=== PATIENT | female | born 1955 | race Caucasian/White ===

== ENCOUNTER 2018-02-04 14:06 | Emergency (ER) | payer SELFPAY ==
[~2018-02-04] VITALS: Ht 157.5 cm; Wt 63.2 kg
[2018-02-04 14:18] VITALS: BP 138/63
[2018-02-04] MEDS ORDERED: AMOX875T PO (14:44)
--- NOTE | 2018-02-04 14:45 | PHYS DOC ---
Past Medical History Past Medical History: Diabetes-Type II Past Surgical History: Cholecystectomy, Hysterectomy, Oophorectomy Alcohol Use: Rarely Drug Use: None Adult General Chief Complaint Chief Complaint: Congestion HPI HPI Patient is a 62 year old female who presents with a sore throat and sinus drainage. 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 The person that exposed her is now taking antibiotics. 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 She was sent by her employer to the emergency department for evaluation when they found out that she was becoming symptomatic. Review of Systems Review of Systems Constitutional: Denies fever or chills [] Eyes: Denies change in visual acuity, redness, or eye pain [] HENT: See history of present illness Respiratory: Denies cough or shortness of breath [] Cardiovascular: No additional information not addressed in HPI [] GI: Denies abdominal pain, nausea, vomiting, bloody stools or diarrhea [] : Denies dysuria or hematuria [] Musculoskeletal: Denies back pain or joint pain [] Integument: Denies rash or skin lesions [] Neurologic: Denies headache, focal weakness or sensory changes [] Endocrine: Denies polyuria or polydipsia [] All other systems were reviewed and found to be within normal limits, except as documented in this note. Allergies Allergies Allergies Coded Allergies Type Severity Reaction Last Updated Verified erythromycin base Allergy Intermediate 02/04/18 Yes insulin glargine Allergy Intermediate Hives 02/04/18 Yes prednisone Allergy Intermediate 02/04/18 Yes Physical Exam Physical Exam Constitutional: Well developed, well nourished, no acute distress, non-toxic appearance. [] HENT: Normocephalic, atraumatic, bilateral external ears normal, pharyngeal erythema with no oral exudates, nose normal. [] Eyes: PERRLA, EOMI, conjunctiva normal, no discharge. [] Neck: Normal range of motion, anterior cervical tenderness, supple, no stridor. [] Cardiovascular:Heart rate regular rhythm, no murmur [] Lungs & Thorax: Bilateral breath sounds clear to auscultation [] Skin: Warm, dry, no erythema, no rash. [] Neurologic: Alert and oriented X 3, normal motor function, normal sensory function, no focal deficits noted. [] Psychologic: Affect normal, judgement normal, mood normal. [] Current Patient Data Vital Signs Vital Signs Date Time Temp Pulse Resp B/P (MAP) Pulse Ox O2 Delivery O2 Flow Rate FiO2 02/04/18 14:18 98.7 86 18 138/63 (88) 97 Room Air 98.7 EKG EKG [] Radiology/Procedures Radiology/Procedures [] Course & Med Decision Making Course & Med Decision Making Pertinent Labs and Imaging studies reviewed. (See chart for details) [] Dragon Disclaimer Dragon Disclaimer This electronic medical record was generated, in whole or in part, using a voice recognition dictation system. Departure Departure Impression: Primary Impression: Upper respiratory infection Additional Impression: Pharyngitis Disposition: HOME, SELF-CARE Condition: STABLE Referrals: UNKNOWN PCP NAME (PCP) Patient Instructions: Upper Respiratory Infection, Adult, Viral and Bacterial Pharyngitis Additional Instructions: Take the medication as directed. Follow-up with your primary care provider in 3 days if not improving or return to the emergency department if worsening. Continue to take your [id number] allergy medication. Scripts Amoxicillin (AMOXICILLIN) 875 Mg Tablet 1 TAB PO BID, #20 TAB Prov: AMANDO BURDICK APRN 02/04/18 Problem Qualifiers AMANDO BURDICK APRN Feb 04, 2018 14:45
== END 2018-02-04 15:05 | disposition home or self-care (01) ==
LOC: ER 14:06
DX: J06.9 Acute upper respiratory infection, unspecified (principal); E11.9 Type 2 diabetes mellitus without complications; Z90.49 Acquired absence of other specified parts of digestive tract; Z90.710 Acquired absence of both cervix and uterus; Z88.1 Allergy status to other antibiotic agents; Z88.8 Allergy status to other drugs, medicaments and biological substances
CPT/HCPCS: 87070; 87880; 99284

== ENCOUNTER 2018-10-11 09:34 | Emergency (ER) | payer SELFPAY ==
[~2018-10-11] VITALS: Ht 157.5 cm; Wt 61.2 kg
[~2018-10-11 09:34] MED LIST: AMOX875T PO
[2018-10-11 09:47] VITALS: BP 174/76
--- NOTE | 2018-10-11 10:44 | RAD ---
EXAM: Right ankle, 3 views. HISTORY: Trauma. COMPARISON: None. FINDINGS: 3 views of the right ankle are obtained. There is no fracture, dislocation or subluxation. There is a small plantar spur. There is suspected bone demineralization. IMPRESSION: No acute osseous finding. Electronically signed by: Ngozi Schilling MD (10/11/2018 10:41 AM) [facility]
[2018-10-11] MEDS ORDERED: HYDR-3164 PO (11:14)
--- NOTE | 2018-10-11 11:14 | PHYS DOC ---
Past Medical History Past Medical History: Diabetes-Type II, Hypertension Past Surgical History: Cholecystectomy, Hysterectomy, Oophorectomy Alcohol Use: Rarely Drug Use: None Adult General Chief Complaint Chief Complaint: FOOT INJURY PAIN [facility] HPI Patient is a 63 year old female who presents with complaining of right ankle and foot pain. Patient states she twisted her right ankle on September 29 2018 and since then has had pain that does not getting better with using one crutches. Patient denies other injuries and focal neurodeficit. She rated her pain for without bearing weight and 7 with bearing weight. Review of Systems Review of Systems Constitutional: Denies fever or chills [] Eyes: Denies change in visual acuity, redness, or eye pain [] HENT: Denies nasal congestion or sore throat [] Respiratory: Denies cough or shortness of breath [] Cardiovascular: No additional information not addressed in HPI [] GI: Denies abdominal pain, nausea, vomiting, bloody stools or diarrhea [] : Denies dysuria or hematuria [] Musculoskeletal: Denies back pain, reports joint pain [] Integument: Denies rash or skin lesions [] Neurologic: Denies headache, focal weakness or sensory changes [] Endocrine: Denies polyuria or polydipsia [] All other systems were reviewed and found to be within normal limits, except as documented in this note. Allergies Allergies Allergies Coded Allergies Type Severity Reaction Last Updated Verified erythromycin base Allergy Intermediate 02/04/18 Yes insulin glargine Allergy Intermediate Hives 02/04/18 Yes prednisone Allergy Intermediate 02/04/18 Yes Physical Exam Physical Exam Constitutional: Well developed, well nourished, mild distress, non-toxic appearance. [] HENT: Normocephalic, atraumatic. Eyes: PERRLA, EOMI, conjunctiva normal, no discharge. [] Neck: Normal range of motion, no tenderness, supple, no stridor. [] Cardiovascular:Heart rate regular rhythm, no murmur [] Lungs & Thorax: Bilateral breath sounds clear to auscultation [] Extremities: Right lower extremity without deformity, mild edema lateral malleolus with mild tenderness, painful range of motion, no cyanosis. Neurologic: Alert and oriented X 3, normal motor function, normal sensory function, no focal deficits noted. [] Psychologic: Affect normal, judgement normal, mood normal. [] Current Patient Data Vital Signs Vital Signs Date Time Temp Pulse Resp B/P (MAP) Pulse Ox O2 Delivery O2 Flow Rate FiO2 10/11/18 09:47 98.0 86 174/76 (108) 98 Room Air 98.0 EKG EKG [] Radiology/Procedures Radiology/Procedures [][facility] [address] [place] [address] IMAGING REPORT Signed PATIENT: DAMASO GUTIERREZ ACCOUNT: [id number] : 1955 LOCATION: ER AGE: 63 SEX: F EXAM STATUS: REG ER ORD. PHYSICIAN: AZUL BRANNON MD REASON: injury on 09/29/18 PROCEDURE: ANKLE RIGHT 3V EXAM: Right ankle, 3 views. HISTORY: Trauma. COMPARISON: None. FINDINGS: 3 views of the right ankle are obtained. There is no fracture, dislocation or subluxation. There is a small plantar spur. There is suspected bone demineralization. IMPRESSION: No acute osseous finding. Electronically signed by: Ngozi Schilling MD (10/11/2018 10:41 AM) [facility] DICTATED and SIGNED BY: NGOZI SCHILLING MD DATE: 10/11/18 1041 Course & Med Decision Making Course & Med Decision Making Pertinent Imaging studies reviewed. (See chart for details) Evaluation of patient in ER showed 63-year-old female patient with injury to right ankle about 2 weeks ago and continued to have pain. X-ray did not show fracture or dislocation. Plan to apply gelcast splint. Patient was advised to use crutches and avoid of bearing weight. Dragon Disclaimer Dragon Disclaimer This electronic medical record was generated, in whole or in part, using a voice recognition dictation system. Departure Departure Impression: Primary Impression: Right ankle sprain Disposition: 01 HOME, SELF-CARE (at 1111) Condition: STABLE Referrals: NO PCP (PCP) Patient Instructions: Ankle Sprain Additional Instructions: Apply ice on the affected area Follow-up with your primary care physician in 3-5 days Return to ER if not getting better Use 2 crutches Scripts Hydrocodone/Apap 5-325 (NORCO 5-325 TABLET) 1 Each Tablet 1 TAB PO PRN Q6HRS PRN for PAIN, #10 TAB 0 Refills Prov: AZUL BRANNON MD 10/11/18 Problem Qualifiers Primary Impression: Right ankle sprain Encounter type: initial encounter Involved ligament of ankle: unspecified ligament Qualified Codes: S93.401A - Sprain of unspecified ligament of right ankle, initial encounter AZUL BRANNON MD October 11, 2018 11:14
== END 2018-10-11 11:30 | disposition home or self-care (01) ==
LOC: ER 09:34
DX: S93.401A Sprain of unspecified ligament of right ankle, initial encounter (principal); Z88.1 Allergy status to other antibiotic agents; I10 Essential (primary) hypertension; E11.9 Type 2 diabetes mellitus without complications; Z88.5 Allergy status to narcotic agent; Z88.8 Allergy status to other drugs, medicaments and biological substances; X50.9XXA Other and unspecified overexertion or strenuous movements or postures, initial encounter; Y93.89 Activity, other specified; Y92.89 Other specified places as the place of occurrence of the external cause; Y99.8 Other external cause status
CPT/HCPCS: 73610; 99284

== ENCOUNTER 2018-11-05 11:18 | Emergency (ER) | payer SELFPAY ==
[~2018-11-05] VITALS: Ht 157.5 cm; Wt 61.2 kg
[~2018-11-05 11:18] MED LIST changes: +HYDR-3164 PO
[2018-11-05 11:28] VITALS: BP 141/68
--- NOTE | 2018-11-05 12:16 | PHYS DOC ---
Past Medical History Past Medical History: Diabetes-Type II, Hypertension Past Surgical History: Cholecystectomy, Hysterectomy, Oophorectomy Alcohol Use: Rarely Drug Use: None Adult General Chief Complaint Chief Complaint: ANKLE PROBLEM HPI HPI Patient is a 63 year old female with a history of hypertension, diabetes type 2, who presents to the ED today complaining of ongoing 7 out of 10 right ankle pain since October 03, 2018 after she twisted her ankle, patient states she was seen in our ED on October 11, 2018 for the same complaint, she had negative x-rays, she states she's been icing and elevating the extremity and wearing the brace as required but the pain has continued. Denies any new injuries. She states the pain is worse on weight-bearing. She states she is able to ambulate. As we were talking Informed patient we can do another x-ray but the best thing will be to see an Orthopedic doctor for further testing and care. Patient states she has no insurance and not able to follow-up. Informed her she can call the orthopedic doctor and see if she can negotiate camp payment options. Patient states we are no helping her. Informed her again we can do an x-ray but we are not able to do further diagnostic testing like MRI, we are not allowed to do this type of testing in the emergency room, the best option would be to follow-up with orthopedic doctor for further care. She decided to wait for her D/C paperwork and leave, refused Xrays. Review of Systems Review of Systems Constitutional: Denies fever or chills [] Musculoskeletal: Right ankle pain Integument: Denies rash or skin lesions [] Neurologic: Denies headache, focal weakness or sensory changes [] All other systems were reviewed and found to be within normal limits, except as documented in this note. Allergies Allergies Allergies Coded Allergies Type Severity Reaction Last Updated Verified erythromycin base Allergy Intermediate 02/04/18 Yes insulin glargine Allergy Intermediate Hives 02/04/18 Yes prednisone Allergy Intermediate 02/04/18 Yes Physical Exam Physical Exam Constitutional: Well developed, well nourished, no acute distress, non-toxic a ppearance. [] Skin: Warm, dry, no erythema, no rash. [] Back: No tenderness, no CVA tenderness. [] Extremities: Right ankle with no obvious deformity, small amount of soft tissue swelling noted on the right lateral ankle. Tenderness on palpation of the right lateral ankle. Full range of motion to the right ankle, toes and foot. +2 right pedal pulse. Cap refill less than 2 seconds the right toes. Sensation intact to the right lower extremity. Neurologic: Alert and oriented X 3, normal motor function, normal sensory function, no focal deficits noted. [] Psychologic: Affect normal, judgement normal, mood normal. [] Current Patient Data Vital Signs Vital Signs Date Time Temp Pulse Resp B/P (MAP) Pulse Ox O2 Delivery O2 Flow Rate FiO2 11/05/18 11:28 98.2 90 16 141/68 (92) 96 Room Air 98.2 EKG EKG [] Radiology/Procedures Radiology/Procedures [] Course & Med Decision Making Course & Med Decision Making Pertinent Labs and Imaging studies reviewed. (See chart for details) This is a 63-year-old female patient presenting to the ED today with right ankle pain since October 03, 2018 after she twisted her ankle. She was seen in the ED on October 11, 2018, had negative x-rays, was sent home has ankle brace. She states she has continued to have the pain. See history of present illness, as i was talking to patient, she wanted further radiology testing. Informed her we can do x-rays we do not do any MRI in the Ed. She decided to wait for her D/C paperwork with referral information and left, refused Xrays. Dragon Disclaimer Dragon Disclaimer This electronic medical record was generated, in whole or in part, using a voice recognition dictation system. Departure Departure Impression: Primary Impression: Right ankle sprain Disposition: HOME, SELF-CARE Condition: STABLE Referrals: NO PCP (PCP) MACHO MONSIVAIS II, MD Call his office today and follow up Patient Instructions: Ankle Sprain Additional Instructions: You were evaluated in the emergency room for right ankle pain, continue to wear the ankle brace you have. Continue to ice and elevate the extremity. Please con tact the provided orthopedic doctor and follow-up with them as soon as possible. Problem Qualifiers Primary Impression: Right ankle sprain Encounter type: subsequent encounter Involved ligament of ankle: unspecified ligament Qualified Codes: S93.401D - Sprain of unspecified ligament of right ankle, subsequent encounter YULI WATKINS TELEGRAPHIC TYPEWRITER REPAIRER November 05, 2018 12:16
== END 2018-11-05 12:15 | disposition home or self-care (01) ==
LOC: ER 11:18
DX: S93.491D Sprain of other ligament of right ankle, subsequent encounter (principal); E11.9 Type 2 diabetes mellitus without complications; I10 Essential (primary) hypertension; Z90.49 Acquired absence of other specified parts of digestive tract; Z90.710 Acquired absence of both cervix and uterus; Z88.1 Allergy status to other antibiotic agents; Z88.8 Allergy status to other drugs, medicaments and biological substances; X50.1XXD Overexertion from prolonged static or awkward postures, subsequent encounter
CPT/HCPCS: 99281